=== PATIENT | female | born 1985 | race Caucasian/White ===

== ENCOUNTER 2018-01-12 12:35 | Emergency (ER) | payer OTHER ==
[2018-01-12 12:53] VITALS: BP 133/74; PULSE 91; TEMP 98.6; BMI 39.0
[2018-01-12] MEDS ORDERED: IBUPROFEN 400 MG TABLET (FP) PO ONE ×3 (13:58→14:06)
[2018-01-12] MEDS ORDERED: CYCLOBENZAPRINE HCL 5 MG TABLET PO STA (13:58)
[2018-01-12] MEDS ORDERED: CYCLOBENZAPRINE HCL 10 MG TABLET (FP) ONE (14:05)
--- NOTE | 2018-01-12 14:08 | PDOC ---
History of Present Illness - General Chief Complaint: Pain Stated Complaint: RESPIRATORY Time Seen by Provider: 01/12/18 13:45 History Source: Patient Exam Limitations: No Limitations - History of Present Illness Initial Comments: 01/12/18 14:00 32 yr female with pain to her right mid back after picking up her young son felt a pull to her back now has pain with deep breath and movement. no shortness of breath no fever no cough . Past History - Past Medical History Allergies/Adverse Reactions: Allergies Allergy/AdvReac Type Severity Reaction Status Date / Time No Known Allergies Allergy Verified 01/12/18 12:50 Home Medications: Ambulatory Orders Cephalexin [Keflex] 500 mg PO QID #40 capsule 02/04/14 Nystatin Powder [Nystop Powder -] 15 gm TP BID #1 bottle 02/04/14 Cyclobenzaprine HCl [Flexeril -] 10 mg PO TID PRN #15 tablet 01/12/18 Naproxen [Naprosyn -] 500 mg PO BID #14 tablet 01/12/18 Anemia: No Asthma: Yes Cancer: No Cardiac Disorders: No CVA: No COPD: No - Surgical History Abdominal Surgery: No Appendectomy: No Cardiac Surgery: Yes - Reproductive History (#): 3 Para: 1 - Suicide/Smoking/Psychosocial Hx Smoking Status: No Smoking History: Never smoked Number of Cigarettes Smoked Daily: 0 Hx Alcohol Use: No Drug/Substance Use Hx: No Hx Substance Use Treatment: No *Physical Exam - Vital Signs Last Vital Signs Temp Pulse Resp BP Pulse Ox 98.6 F 91 H 18 133/74 99 01/12/18 12:50 01/12/18 12:50 01/12/18 12:50 01/12/18 12:50 01/12/18 12:50 - Physical Exam General Appearance: Yes: Nourished, Appropriately Dressed HEENT: positive: EOMI, KRISTA, Normal ENT Inspection, TMs Normal, Pharynx Normal Neck: positive: Supple. negative: Tender Respiratory/Chest: positive: Lungs Clear, Normal Breath Sounds. negative: Chest Tender Gastrointestinal/Abdominal: positive: Normal Bowel Sounds, Soft. negative: Tender Musculoskeletal: positive: Muscle Spasm (right mid back muscle ttp , reproduced with movement and deep breath). negative: CVA Tenderness, CVA Tenderness (R), CVA Tenderness (L), Decreased Range of Motion, Vertebral Tenderness Medical Decision Making - Medical Decision Making 01/12/18 14:01 cc: back pain after lifting her young son up pulled muscle and feels worse with movement and with deep breathing no acute shortness of breath will give motrin and flexeril *DC/Admit/Observation/Transfer Diagnosis at time of Disposition: Muscle strain - Discharge Dispostion Disposition: HOME Condition at time of disposition: Good - Prescriptions Prescriptions: Cyclobenzaprine HCl [Flexeril -] 10 mg PO TID PRN #15 tablet PRN Reason: Muscle Spasms Naproxen [Naprosyn -] 500 mg PO BID #14 tablet - Referrals Referrals: Kami Edmonds MD [Primary Care Provider] - - Patient Instructions Additional Instructions: apply warm compress or heating pad to the area of pain every 3hrs for 20 minutes take the medication as prescribed as needed for the next 2 days return if any worsening pain - Post Discharge Activity
== END 2018-01-12 14:14 | disposition home or self-care (01) ==
LOC: JERFT 12:35
DX: S29.012A Strain of muscle and tendon of back wall of thorax, initial encounter (principal); X50.9XXA Other and unspecified overexertion or strenuous movements or postures, initial encounter; Y93.F2 Activity, caregiving, lifting; Y92.038 Other place in apartment as the place of occurrence of the external cause; Y99.8 Other external cause status
CPT/HCPCS: 99281-25

== ENCOUNTER 2018-06-04 11:41 | Emergency (ER) | payer OTHER ==
[2018-06-04 11:50] VITALS: BP 136/85; PULSE 78; TEMP 97.8; BMI 37.5
--- NOTE | 2018-06-04 13:29 | PDOC ---
History of Present Illness - General Chief Complaint: Cold Symptoms Stated Complaint: CONGESTION/COUGH Time Seen by Provider: 06/04/18 13:23 - History of Present Illness Initial Comments: 06/04/18 13:27 33-year-old female with a past medical history significant for seasonal asthma presents for evaluation of ALLERGIES over the last 3 days. She states she's been increasingly congested sneezing with itchy eyes no systemic symptoms Past History - Past Medical History Allergies/Adverse Reactions: Allergies Allergy/AdvReac Type Severity Reaction Status Date / Time No Known Allergies Allergy Verified 06/04/18 11:50 Home Medications: Ambulatory Orders Budesonide [Rhinocort Allergy] 1 spray NS ONCE #1 spray.pump 06/04/18 Cetirizine HCl/Pseudoephedrine [Zyrtec-D Tablet] 1 each PO DAILY #30 tab.er.12h 06/04/18 Olopatadine HCl [Pataday] 1 drop OU DAILY #1 bottle 06/04/18 Anemia: No Asthma: Yes Cancer: No Cardiac Disorders: No CVA: No COPD: No - Surgical History Abdominal Surgery: No Appendectomy: No Cardiac Surgery: Yes - Reproductive History (#): 3 Para: 1 - Suicide/Smoking/Psychosocial Hx Smoking Status: No Smoking History: Never smoked Number of Cigarettes Smoked Daily: 0 Hx Alcohol Use: No Drug/Substance Use Hx: No Hx Substance Use Treatment: No Review of Systems - Review of Systems Constitutional: No: Fever HEENTM: Yes: See HPI, Tearing, Nose Congestion. No: Eye Pain, Blurred Vision, Recent change in vision, Double Vision Respiratory: Yes: Cough *Physical Exam - Vital Signs Last Vital Signs Temp Pulse Resp BP Pulse Ox 97.8 F 78 14 136/85 97 06/04/18 11:44 06/04/18 11:44 06/04/18 11:44 06/04/18 11:44 06/04/18 11:44 - Physical Exam Comments: 06/04/18 13:28 HEAD: NC/AT EYES: Conjuntiva clear Ears: Canals and TM's normal NOSE: No d/c THROAT: Moist mucous membrances, oral pharanx clear, uvula midline NECK: Supple without adenopathy CARDIAC: S1 S2 LUNGS: CTA Full and Equal breath sounds ABDOMEN: Soft NT ND MS: Full ROM in all joints without edema NEUROLOGIC: No gross sensory or motor deficits, NVID SKIN: Normal color and temperature no lesions or rashes Medical Decision Making - Medical Decision Making 06/04/18 13:28 We'll treat seasonal ALLERGIES with steroid all nasal spray, antihistamine with decongestant, and antiallergy eyedrops. I will refer her back to her PCP. *DC/Admit/Observation/Transfer Diagnosis at time of Disposition: Seasonal allergies - Discharge Dispostion Disposition: HOME Condition at time of disposition: Stable Decision to Admit order: No - Prescriptions Prescriptions: Budesonide [Rhinocort Allergy] 1 spray NS ONCE #1 spray.pump Cetirizine HCl/Pseudoephedrine [Zyrtec-D Tablet] 1 each PO DAILY #30 tab.er.12h Olopatadine HCl [Pataday] 1 drop OU DAILY #1 bottle - Referrals Referrals: Kami Edmonds MD [Primary Care Provider] - - Patient Instructions Printed Discharge Instructions: Allergic Rhinitis Additional Instructions: Leese take the medication as directed. Return to the emergency room should symptoms worsen. Follow-up with your primary care physician in one to 2 days for further evaluation and treatment options. - Post Discharge Activity
== END 2018-06-04 13:32 | disposition home or self-care (01) ==
LOC: JERFT 11:41
DX: J30.2 Other seasonal allergic rhinitis (principal)
CPT/HCPCS: 99281-25

== ENCOUNTER 2023-02-26 12:55 | Emergency (ER) | payer OTHER ==
[2023-02-26 13:05] VITALS: BP 139/82; PULSE 104; RESP 18; TEMP 99.5; BMI 41.8
== END 2023-02-26 16:50 | disposition home or self-care (01) ==
LOC: JERFT 12:55
DX: R05.1 Acute cough (principal); M79.10 Myalgia, unspecified site; R63.0 Anorexia; R23.2 Flushing; R53.83 Other fatigue; J10.1 Influenza due to other identified influenza virus with other respiratory manifestations; Z20.822 Contact with and (suspected) exposure to COVID-19
CPT/HCPCS: 0241U-QW; 71046-TC-FY; 99284-25

== ENCOUNTER 2023-06-26 07:45 | Emergency (ER) | payer OTHER ==
[2023-06-26 07:55] VITALS: BP 129/83; PULSE 82; RESP 12; TEMP 98; BMI 36.0
[2023-06-26] MEDS ORDERED: ONDANSETRON 4 MG/2 ML VIAL ONE (08:55)
[2023-06-26] MEDS ORDERED: MAG HYDROX/AL HYDROX/SIMETH 30 ML UNIT-DOSE CUP ONE (08:55)
[2023-06-26] MEDS ORDERED: ACETAMINOPHEN INJECTION 100 ML IVPB ONE (08:55)
[2023-06-26] MEDS ORDERED: FAMOTIDINE 20 MG/50 ML IVPB 20 MG/50 ML MG IVPB ONE (08:55)
[2023-06-26] MEDS: ONDANSETRON 4 MG/2 ML VIAL IVPUSH ONE (09:21)
[2023-06-26] MEDS: MAG HYDROX/AL HYDROX/SIMETH -MYLANTA- ORAL SUSPENSION PO ONE (09:21)
[2023-06-26] MEDS: SODIUM CHLORIDE 0.9% 500 ML INFUS.BAG IV ONE (09:21)
[2023-06-26] MEDS: ACETAMINOPHEN 1000 MG/100 ML BAG IVPB ONE (09:21)
[2023-06-26] MEDS: FAMOTIDINE 20 MG/50 ML IVPB 20 MG/50 ML MG IVPB ONE (09:21)
[2023-06-26 09:42] LABS: BASO % 0.3 % (0-2.0); EOS % 0.1 % (0-4.5); HEMATOCRIT 42.7 % (32.4-45.2); HEMOGLOBIN 13.9 GM/dL (10.7-15.3); LYMPH % 5.4 % (8-40); MCH 28.9 pg (25.7-33.7); MCHC 32.6 g/dl (32.0-36.0); MEAN CELL VOLUME 88.6 fl (80-96); MEAN PLT VOLUME 7.5 fl (7.5-11.1); MONO % 3.3 % (3.8-10.2); NEUT % 90.9 % (42.8-82.8); PLATELET COUNT 257 10^3/uL (134-434); RBC 4.82 M/mm3 (3.60-5.2); RDW 14.7 % (11.6-15.6); WHITE BLOOD COUNT 8.8 K/mm3 (4.0-10.0)
[2023-06-26 10:11] LABS: POTASSIUM 4.3 mmol/L (3.5-5.1)
[2023-06-26 10:14] LABS: ALBUMIN 3.2 g/dl (3.4-5.0)
[2023-06-26 10:15] LABS: BLOOD UREA NITROGEN 12.6 mg/dL (7-18)
[2023-06-26 10:17] LABS: CREATININE 0.7 mg/dL (0.55-1.3)
[2023-06-26 10:19] LABS: BILIRUBIN,TOTAL 0.4 mg/dL (0.2-1); TOT PROT 7.4 g/dl (6.4-8.2)
[2023-06-26 10:22] LABS: CALCIUM 8.7 mg/dL (8.5-10.1)
== END 2023-06-26 12:24 | disposition home or self-care (01) ==
LOC: JER 07:45
PROC: 3E033GC Introduction of Other Therapeutic Substance into Peripheral Vein, Percutaneous Approach (ICD-10-PCS; principal; 2023-06-26)
PROC: 3E030GC Introduction of Other Therapeutic Substance into Peripheral Vein, Open Approach (ICD-10-PCS; 2023-06-26)
PROC: 3E030GC Introduction of Other Therapeutic Substance into Peripheral Vein, Open Approach (ICD-10-PCS; 2023-06-26)
DX: R19.7 Diarrhea, unspecified (principal); R11.2 Nausea with vomiting, unspecified; R10.13 Epigastric pain; Z20.822 Contact with and (suspected) exposure to COVID-19
CPT/HCPCS: 0241U-QW; 36415; 80053; 83690; 84703; 85025; 99284-25; J0131